=== PATIENT | female | born 1950 | race Caucasian/White ===

== ENCOUNTER 2021-01-31 19:40 | Observation (INO) ==
[2021-01-31] MEDS ORDERED: 0.9 % Sodium Chloride 1,000 ML IVC ONE (20:44)
[2021-01-31] MEDS ORDERED: Ondansetron 4 MG/2 ML VIAL IVP ONE (20:44)
[2021-01-31] MEDS ORDERED: Isovue-370 500 ML BOTTLE IVP ONE (20:45)
[2021-01-31 21:02] LABS: Nucleated Red Blood Cells 0.2 /100 WBC (0); Red Cell Distribution Width 14.6 % (11.5-14.5)
[2021-01-31 21:04] LABS: Basophils % 0.1 %; Hemoglobin 7.8 g/dL (11.5-15.4); Immature Granulocytes % 0.5 % (0-4); Immature Platelets 2.3 % (1.1-6.1); Lymphocytes # 0.9 K/mcL (0.6-4.6); Lymphocytes % 10.6 %; Mean Corpuscular HGB Conc 32.5 g/dL (31.6-35.5); Mean Corpuscular Hemoglobin 28.3 pg (28.0-33.3); Mean Platelet Volume 10.5 fL (9.4-12.4); Monocytes # 1.1 K/mcL (0.0-1.3); Monocytes % 13.3 %; Neutrophils # 6.2 K/mcL (1.6-8.9); Red Blood Count 2.76 M/mcL (3.82-4.97); Segmented Neutrophils % 75.5 %; White Blood Count 8.2 K/mcL (4.3-11.1)
[2021-01-31 21:16] LABS: Platelet Count 16 K/mcL (140-400)
[2021-01-31 21:18] LABS: Albumin 4.1 g/dL (3.5-5.7); Albumin/Globulin Ratio 1.9 (1.1-2.2); Bilirubin,Total 0.6 mg/dL (0.3-1.0); Globulin 2.2 g/dL (2.4-3.5); Potassium 3.6 mEq/L (3.5-5.1); Total Protein 6.3 g/dL (6.4-8.9)
[2021-01-31] MEDS ORDERED: Amoxicillin/Clavulanate 400 MG/5 ML UDC PO SCH (22:30)
[2021-01-31 23:10] LABS: Mucus,Urine Few per lpf (None-Few); RBC,Urine 0-3 per hpf (0-3); Squamous Epithelial Cell,Urine Few per hpf (None-Few); WBC,Urine 0-3 per hpf (0-3)
[2021-01-31 23:11] LABS: Bilirubin,Urine Negative (Negative); Blood,Urine Small (Negative); Clarity,Urine Clear (Clear); Color,Urine Yellow (Yellow); Glucose,Urine (UA) Normal (Normal); Ketones,Urine Negative (Negative); Leukocyte Esterase,Urine Negative (Negative); Nitrite,Urine Negative (Negative); Protein,Urine Trace mg/dL (Neg-Trace); Specific Gravity,Urine 1.021 (1.010-1.025); Urobilinogen,Urine Normal (Normal)
[2021-01-31] MEDS ORDERED: Amoxicillin/Clavulanate 400 MG/5 ML UDC PO STA (23:28)
[2021-02-01] MEDS ORDERED: Prochlorperazine 10 MG/2 ML VIAL IVP PRN (01:05)
[2021-02-01] MEDS ORDERED: Naloxone 0.4 MG/ML INJ IVP PRN (01:19)
[2021-02-01 01:51] LABS: Sodium, Urine 70.2 mEq/L
[2021-02-01 03:10] LABS: Mean Corpuscular Volume 89.8 fL (83.0-100.0); Red Cell Distribution Width 14.7 % (11.5-14.5)
[2021-02-01 03:13] LABS: Hematocrit 22.9 % (35.3-44.9); Hemoglobin 7.1 g/dL (11.5-15.4); Immature Granulocytes % 0.3 % (0-4); Immature Platelets 1.9 % (1.1-6.1); Lymphocytes # 0.3 K/mcL (0.6-4.6); Lymphocytes % 4.3 %; Mean Corpuscular Hemoglobin 27.8 pg (28.0-33.3); Mean Platelet Volume 9.9 fL (9.4-12.4); Monocytes # 0.3 K/mcL (0.0-1.3); Monocytes % 4.9 %; Neutrophils # 5.9 K/mcL (1.6-8.9); Red Blood Count 2.55 M/mcL (3.82-4.97); Segmented Neutrophils % 90.5 %; White Blood Count 6.5 K/mcL (4.3-11.1)
[2021-02-01 03:35] LABS: Albumin 3.8 g/dL (3.5-5.7); Albumin/Globulin Ratio 1.8 (1.1-2.2); Bilirubin,Total 0.6 mg/dL (0.3-1.0); Calcium 8.3 mg/dL (8.6-10.3); Globulin 2.1 g/dL (2.4-3.5); Potassium 3.7 mEq/L (3.5-5.1); Total Protein 5.9 g/dL (6.4-8.9)
[2021-02-01 03:43] LABS: Platelet Count 12 K/mcL (140-400)
[2021-02-01] MEDS: Ondansetron 4 MG/2 ML VIAL IVP SCH ×4 (06:21→23:49)
[2021-02-01 11:02] LABS: Hematocrit 20.3 % (35.3-44.9); Hemoglobin 6.4 g/dL (11.5-15.4)
[2021-02-01 11:45] LABS: Adenovirus F 40/41 PCR Not detected (Not detect); Astrovirus PCR Not detected (Not detect); C.difficile Toxin A/B Gene PCR Not detected (Not detect); Campylobacter by PCR Not detected (Not detect); Cryptosporidium by PCR Not detected (Not detect); Cyclospora cayetanensis PCR Not detected (Not detect); E. coli O157 by PCR Not detected (Not detect); Entamoeba histolytica PCR Not detected (Not detect); Enteroaggregative E.coli(EAEC) Not detected (Not detect); Enteropathogenic E.coli(EPEC) Not detected (Not detect); Enterotoxigenic E.coli (ETEC) Not detected (Not detect); Giardia lamblia PCR Not detected (Not detect); Norovirus GI/GII PCR Not detected (Not detect); Plesiomonas shigelloides PCR Not detected (Not detect); Rotavirus A PCR Not detected (Not detect); Salmonella PCR Not detected (Not detect); Sapovirus PCR Not detected (Not detect); Shig/EnteroinvasiveE coli EIEC Not detected (Not detect); Shigalike tox-prod E coli STEC Not detected (Not detect); Vibrio PCR Not detected (Not detect); Vibrio cholerae PCR Not detected (Not detect); Yersinia enterocolitica PCR Not detected (Not detect)
[2021-02-01] MEDS ORDERED: hydrOXYzine pamoate 25 MG CAPSULE PO PRN (13:17)
[2021-02-01] MEDS ORDERED: Budesonide/Formoterol 160/4.5 1 PUFF INH IH SCH ×2 (13:30→22:00)
[2021-02-01] MEDS ORDERED: 0.9 % Sodium Chloride 250 ML ONE (14:55)
[2021-02-01] MEDS ORDERED: 0.9 % Sodium Chloride 1,000 ML IVC SCH (18:30)
[2021-02-01 20:00] LABS: Hematocrit 22.2 % (35.3-44.9); Hemoglobin 7.5 g/dL (11.5-15.4)
[2021-02-01] MEDS ORDERED: Acyclovir 200 MG CAPSULE PO SCH (21:00)
[2021-02-01] MEDS ORDERED: Gabapentin 300 MG CAPSULE PO SCH (21:00)
[2021-02-02 01:56] LABS: Hemoglobin 6.9 g/dL (11.5-15.4); Immature Granulocytes % 0.4 % (0-4)
[2021-02-02 01:57] LABS: Hematocrit 21.6 % (35.3-44.9); Immature Platelets 2.3 % (1.1-6.1); Lymphocytes # 0.3 K/mcL (0.6-4.6); Lymphocytes % 11.6 %; Mean Corpuscular HGB Conc 31.9 g/dL (31.6-35.5); Mean Corpuscular Hemoglobin 28.6 pg (28.0-33.3); Mean Corpuscular Volume 89.6 fL (83.0-100.0); Mean Platelet Volume 8.2 fL (9.4-12.4); Monocytes # 0.4 K/mcL (0.0-1.3); Monocytes % 13.5 %; Neutrophils # 1.9 K/mcL (1.6-8.9); Red Blood Count 2.41 M/mcL (3.82-4.97); Red Cell Distribution Width 14.6 % (11.5-14.5); Segmented Neutrophils % 74.5 %; White Blood Count 2.6 K/mcL (4.3-11.1)
[2021-02-02 02:09] LABS: Calcium 7.9 mg/dL (8.6-10.3); Potassium 3.4 mEq/L (3.5-5.1)
[2021-02-02 02:12] LABS: Platelet Count 5 K/mcL (140-400)
[2021-02-02] MEDS ORDERED: 0.9 % Sodium Chloride 250 ML ONE (04:19)
[2021-02-02 06:06] VITALS: BP 114/63
[2021-02-02] MEDS ORDERED: Magnesium Oxide 400 MG TABLET PO SCH (09:00)
[2021-02-02] MEDS ORDERED: allopurinoL 300 MG TABLET PO SCH (09:00)
== END 2021-02-02 06:59 | disposition short-term general hospital (02) ==
LOC: CDU 19:40 → EMEROOARM 19:40 → SUATTDRO 23:45 → CDU 02-01 01:00
PROVIDERS: ADMIT Family Medicine; ATTEND Internal Medicine